=== PATIENT | female | born 1960 | race African-American/Black ===

== ENCOUNTER 2023-01-21 19:44 | Inpatient (IN) | payer OTHER ==
[2023-01-21] MEDS ORDERED: SODIUM CHLORIDE 1,000 ML IV ONE (19:59)
[2023-01-21] MEDS ORDERED: ONDANSETRON 4 MG/2 ML VIAL IVPB ONE (19:59)
[2023-01-21] MEDS ORDERED: morphine CARPU-JECT 2 MG/1 ML DISP.SYRIN IVPUSH ONE (19:59)
[2023-01-21] MEDS ORDERED: ONDANSETRON 4 MG/2 ML VIAL ONE (20:14)
[2023-01-21 20:26] LABS: HEMATOCRIT 42.8 % (32.4-45.2); HEMOGLOBIN 14.3 G/dL (10.7-15.3); MCH 25.1 pg (25.7-33.7); MCHC 33.4 g/dl (32.0-36.0); MEAN CELL VOLUME 75.4 fl (80-96); MEAN PLT VOLUME 8.7 fl (7.5-11.1); PLATELET COUNT 210.9 10^3/uL (134-434); RBC 5.68 10^6/uL (3.60-5.2)
[2023-01-21 21:01] LABS: EPITHELIAL CELLS FEW /hpf
[2023-01-21 21:39] LABS: POTASSIUM 3.8 mmol/L (3.5-5.1)
[2023-01-21 21:41] LABS: CALCIUM 8.9 mg/dL (8.5-10.1)
[2023-01-21 21:42] LABS: ALBUMIN 3.1 g/dl (3.4-5.0); BLOOD UREA NITROGEN 10.9 mg/dL (7-18); MAGNESIUM 2.1 mg/dL (1.8-2.4)
[2023-01-21 21:45] LABS: CREATININE 0.7 mg/dL (0.55-1.3); PHOSPHOROUS 3.4 mg/dL (2.5-4.9)
[2023-01-21 21:47] LABS: BILIRUBIN,TOTAL 0.7 mg/dL (0.2-1)
[2023-01-22] MEDS ORDERED: morphine CARPU-JECT 4 MG/1 ML DISP.SYRIN IVPUSH ONE (00:13)
[2023-01-22] MEDS ORDERED: PIPERACILLIN/TAZOB 4.5 GM 4.5 GM in DEXTROSE 5%-WATER 100 ML IVPB ONE (00:59)
[2023-01-22] MEDS ORDERED: KETOROLAC TROMETHAMINE 30 MG/1 ML VIAL IVPUSH ONE (01:01)
[2023-01-22] MEDS ORDERED: PIPERACILLIN/TAZOBACTAM 4.5 GM VIAL IVPB ONE (01:01)
[2023-01-22] MEDS ORDERED: KETOROLAC TROMETHAMINE 30 MG/1 ML VIAL ONE (01:09)
[2023-01-22] MEDS ORDERED: SODIUM CHLORIDE 1,000 ML IV SCH (01:45)
[2023-01-22] MEDS: PIPERACILLIN/TAZOB 3.375 GM 3.375 GM in DEXTROSE 5%-WATER - 50 ML IVPB SCH ×3 (01:50→18:14)
[2023-01-22 07:24] LABS: HEMATOCRIT 36.5 % (32.4-45.2); HEMOGLOBIN 11.8 GM/dL (10.7-15.3); MCH 23.9 pg (25.7-33.7); MCHC 32.2 g/dl (32.0-36.0); MEAN CELL VOLUME 74.2 fl (80-96); MEAN PLT VOLUME 8.9 fl (7.5-11.1); PLATELET COUNT 210 10^3/uL (134-434); RBC 4.93 M/mm3 (3.60-5.2); RDW 16.5 % (11.6-15.6); WHITE BLOOD COUNT 9.4 K/mm3 (4.0-10.0)
[2023-01-22 07:34] LABS: POTASSIUM 3.5 mmol/L (3.5-5.1)
[2023-01-22 07:35] LABS: CALCIUM 7.9 mg/dL (8.5-10.1)
[2023-01-22 07:36] LABS: BLOOD UREA NITROGEN 9.8 mg/dL (7-18)
[2023-01-22 07:39] LABS: CREATININE 0.7 mg/dL (0.55-1.3)
[2023-01-22] MEDS ORDERED: BISACODYL 10 MG SUPP.RECT PR PRN (09:43)
[2023-01-22] MEDS ORDERED: SODIUM CHLORIDE 1,000 ML IV STA (09:44)
[2023-01-23] MEDS: PIPERACILLIN/TAZOB 3.375 GM 3.375 GM in DEXTROSE 5%-WATER - 50 ML IVPB SCH ×4 (01:11→21:28)
[2023-01-23] MEDS ORDERED: PIPERACILLIN/TAZOB 3.375 GM 3.375 GM in DEXTROSE 5%-WATER - 50 ML IVPB SCH (02:00)
[2023-01-23 08:51] LABS: HEMATOCRIT 37.1 % (32.4-45.2); HEMOGLOBIN 12.1 G/dL (10.7-15.3); MCH 24.8 pg (25.7-33.7); MCHC 32.6 g/dl (32.0-36.0); MEAN CELL VOLUME 76.1 fl (80-96); MEAN PLT VOLUME 9.8 fl (7.5-11.1); PLATELET COUNT 216.5 10^3/uL (134-434); RBC 4.87 10^6/uL (3.60-5.2); RDW 18.4 % (11.6-15.6); WHITE BLOOD COUNT 6.4 10^3/uL (4.0-10.8)
[2023-01-23 08:59] LABS: ALBUMIN 3.2 g/dl (3.4-5.0); BILIRUBIN,TOTAL 0.9 mg/dl (0.2-1); BLOOD UREA NITROGEN 8.5 mg/dl (7-18); CALCIUM 8.4 mg/dl (8.5-10.1); CREATININE 0.6 mg/dl (0.6-1.3); POTASSIUM 3.5 mmol/L (3.5-5.1); SGOT/AST 33.865 U/L (15-37); SGPT/ALT 50.145 U/L (7-52); TOT PROT 5.6 g/dl (6.4-8.2)
[2023-01-23] MEDS ORDERED: LIDOCAINE HCL/PF 2% SDV 5ML VIAL ONE (09:38)
[2023-01-23] MEDS ORDERED: MIDAZOLAM HCL 2 MG/2 ML SINGLE DOSE VIAL ONE (09:39)
[2023-01-23] MEDS ORDERED: ROCURONIUM BROMIDE 50 MG/5 ML SYRINGE ONE (09:39)
[2023-01-23] MEDS ORDERED: FENTANYL CITRATE/PF 50 MCG/ML VIAL ONE ×2 (09:39→13:14)
[2023-01-23] MEDS ORDERED: SUCCINYLCHOLINE CHLORIDE 200 MG/10 ML SYRINGE ONE (09:39)
[2023-01-23] MEDS ORDERED: PROPOFOL 20 ML ONE (09:39)
[2023-01-23] MEDS ORDERED: ceFAZolin SODIUM 1 GM VIAL ONE (10:07)
[2023-01-23] MEDS ORDERED: BUPIVACAINE HCL/PF 0.25% (2.5MG/ML) 10 ML VIAL ONE (10:20)
[2023-01-23] MEDS ORDERED: ceFAZolin SODIUM 1 GM VIAL IVPB ONE (10:40)
[2023-01-23] MEDS ORDERED: BUPIVACAINE HCL/PF 0.25% (2.5MG/ML) 10 ML VIAL IJ ONE (10:40)
[2023-01-23] MEDS ORDERED: DEXAMETHASONE SOD PHOSPHATE 4 MG/1 ML VIAL ONE (11:33)
[2023-01-23] MEDS ORDERED: KETOROLAC TROMETHAMINE 30 MG/1 ML VIAL ONE (11:33)
[2023-01-23] MEDS ORDERED: ONDANSETRON 4 MG/2 ML VIAL ONE ×2 (11:33→12:29)
[2023-01-23] MEDS ORDERED: ACETAMINOPHEN INJECTION 100 ML IVPB ONE (11:35)
[2023-01-23] MEDS ORDERED: GLYCOPYRROLATE 0.2 MG/1 ML VIAL ONE (12:02)
[2023-01-23] MEDS ORDERED: NEOSTIGMINE METHYLSULFATE 0.5 MG/1 ML - 10 ML MDV ONE (12:02)
[2023-01-23] MEDS ORDERED: ONDANSETRON 4 MG/2 ML VIAL IVPUSH ONE (12:31)
[2023-01-23] MEDS ORDERED: oxyCODONE HCL 5 MG TABLET PO PRN ×2 (12:37→12:40)
[2023-01-23] MEDS ORDERED: SODIUM CHLORIDE 1,000 ML IV SCH (12:49)
[2023-01-23] MEDS ORDERED: BISACODYL 10 MG SUPP.RECT PR PRN (12:49)
[2023-01-23 12:56] LABS: PLATELET ESTIMATE ADEQUATE
[2023-01-23] MEDS ORDERED: PROMETHAZINE HCL 25 MG/1 ML VIAL IVPB PRN (13:01)
[2023-01-23] MEDS ORDERED: ONDANSETRON 4 MG/2 ML VIAL IVPUSH PRN (13:01)
[2023-01-23] MEDS ORDERED: PROMETHAZINE HCL 25 MG/1 ML VIAL IVPB ONE (13:02)
[2023-01-23] MEDS ORDERED: ACETAMINOPHEN 1000 MG/100 ML BAG IVPB ONE (13:02)
[2023-01-23] MEDS ORDERED: LACTATED RINGERS SOLUTION 1,000 ML IV SCH (13:15)
[2023-01-23] MEDS ORDERED: PIPERACILLIN/TAZOBACTAM 3.375 GM VIAL IVPB ONE (13:26)
[2023-01-23] MEDS: ACETAMINOPHEN 1000 MG/100 ML BAG IVPB SCH (19:17)
[2023-01-23] MEDS: KETOROLAC TROMETHAMINE 15 MG/ML VIAL IVPUSH SCH (21:29)
[2023-01-23] MEDS: HEPARIN NA (PORCINE) 5,000 UNITS/ML 1ML VIAL SQ SCH (21:29)
[2023-01-24] MEDS: ACETAMINOPHEN 1000 MG/100 ML BAG IVPB SCH (02:07)
[2023-01-24] MEDS: KETOROLAC TROMETHAMINE 15 MG/ML VIAL IVPUSH SCH (05:35)
[2023-01-24 06:27] VITALS: RESP 18
[2023-01-24 09:50] LABS: BASO % 0.3 % (0-2.0); EOS % 0.3 % (0-4.5); HEMATOCRIT 35.6 % (32.4-45.2); HEMOGLOBIN 11.6 GM/dL (10.7-15.3); LYMPH % 27.5 % (8-40); MCH 24.3 pg (25.7-33.7); MCHC 32.5 g/dl (32.0-36.0); MEAN CELL VOLUME 74.7 fl (80-96); MEAN PLT VOLUME 8.7 fl (7.5-11.1); MONO % 7.9 % (3.8-10.2); PLATELET COUNT 236 10^3/uL (134-434); RBC 4.77 M/mm3 (3.60-5.2); RDW 16.2 % (11.6-15.6)
[2023-01-24] MEDS ORDERED: amLODIPine BESYLATE 5 MG TABLET (FP) PO SCH (10:00)
[2023-01-24 10:10] LABS: POTASSIUM 3.3 mmol/L (3.5-5.1)
[2023-01-24 10:12] LABS: CALCIUM 8.2 mg/dL (8.5-10.1)
[2023-01-24 10:13] LABS: ALBUMIN 2.7 g/dl (3.4-5.0); BLOOD UREA NITROGEN 7.6 mg/dL (7-18)
[2023-01-24 10:16] LABS: CREATININE 0.6 mg/dL (0.55-1.3)
[2023-01-24 10:18] LABS: BILIRUBIN,TOTAL 0.9 mg/dL (0.2-1)
[2023-01-24] MEDS: HEPARIN NA (PORCINE) 5,000 UNITS/ML 1ML VIAL SQ SCH (10:24)
[2023-01-24] MEDS ORDERED: POTASSIUM CHLORIDE TABS 20 MEQ TABLET.ER (FP) PO ONE (11:15)
[2023-01-24 13:21] VITALS: BMI 32.9
[2023-01-24 14:44] VITALS: BP 141/85; PULSE 80; TEMP 98.3
== END 2023-01-24 15:50 | disposition home or self-care (01) | DRG 419 ==
LOC: FER 19:44 → FM/S 01-22 01:42 → J8W 01-23 15:48
PROVIDERS: ADMIT Internal Medicine; ATTEND Nurse Practitioner Acute Care
PROC: 0FT44ZZ Resection of Gallbladder, Percutaneous Endoscopic Approach (ICD-10-PCS; principal; 2023-01-23 10:00)
DX: K80.00 Calculus of gallbladder with acute cholecystitis without obstruction (principal); K59.00 Constipation, unspecified; E86.0 Dehydration; I10 Essential (primary) hypertension
CPT/HCPCS: 36415; 71045-TC-FY; 74177-TC; 74182-TC; 80048; 80053; 80061; 81003; 81015; 83605; 83690; 83735; 84100; 85025; 85027; 87635; 88304-TC; 93005; 94760; 99285-25; J1644; Q9967